=== PATIENT | male | born 1975 | race Caucasian/White ===

== ENCOUNTER 2023-01-24 07:34 | Emergency (ER) | payer MEDICAID ==
[~2023-01-24] VITALS: Ht 162.6 cm; Wt 90.0 kg
[2023-01-24 07:41] VITALS: O2SAT 99
[2023-01-24] MEDS ORDERED: IBUPROFEN 400MG TABLET PO ONE (07:45)
[2023-01-24] MEDS ORDERED: IBUP-2028 PO (08:09)
[2023-01-24 09:42] VITALS: BP 147/87; PULSE 98; RESP 16; TEMP 97.9
== END 2023-01-24 09:43 | disposition home or self-care (01) ==
LOC: ER 07:34
DX: R07.89 Other chest pain (principal); R10.9 Unspecified abdominal pain
CPT/HCPCS: 71045; 76705; 93005; 93880; 99284